=== PATIENT | female | born 1950 | race Caucasian/White ===

== ENCOUNTER 2018-02-01 18:56 | Emergency (ER) | payer MEDICARE, OTHER ==
--- NOTE | 2018-02-01 20:09 | CT ---
CT HEAD NONCONTRAST: Clinical history: Fall with head injury and pain. FINDINGS: No evidence of intracranial hemorrhage, mass effect, midline shift or ventriculomegaly. Chronic appea ring dehiscense is seen at the mediolateral orbital wall. IMPRESSION: No acute intracranial hemorrhage or mass effect. POS: [facility]
--- NOTE | 2018-02-01 20:15 | RAD ---
LEFT SHOULDER THREE VIEWS: History: Trauma. Comparison: None. FINDINGS: No acute fracture. No malalignment. The visualized ribs are unremarkable. Mild degenerative disease at the acromioclavicular joint. IMPRESSION: No acute fracture or malalignment. POS: [facility]
--- NOTE | 2018-02-01 20:55 | CT ---
CT CHEST WITHOUT CONTRAST: History: Fall. Left sided pain. Comparison: None. FINDINGS: There is a large hiatal hernia. Prior gastric bypass surgery. The hernia contains the gastric pouch a nd a bhargavi limb. The lungs are clear. No pneumothorax or effusion. No mediastinal adenopathy. No pericardial effusion. There is a fat containing ventral hernia incomple tely evaluated in the upper abdomen. Right upper quadrant surgical clips. Prior cholecystectomy. No t horacic spine compression fracture. Clavicles are intact as well as the visualized portions of the sh oulders. No displaced rib fracture. No rib buckle fracture is appreciated. IMPRESSION: 1. No acute intrathoracic abnormality. 2. Prior gastric bypass surgery with sliding hernia containing the gastric pouch and bhargavi limb. 3. Ventral hernia containing fat and incompletely evaluated of the upper abdomen. POS: [facility]
== END 2018-02-01 20:59 | disposition home or self-care (01) ==
LOC: SCSER 18:56
DX: R07.89 Other chest pain (principal); F41.9 Anxiety disorder, unspecified; F32.9 Major depressive disorder, single episode, unspecified; W01.0XXA Fall on same level from slipping, tripping and stumbling without subsequent striking against object, initial encounter; Y92.481 Parking lot as the place of occurrence of the external cause
CPT/HCPCS: 70450; 71250

== ENCOUNTER 2023-08-13 10:28 | Outpatient (CLI) | payer MEDICARE, OTHER ==
[2023-08-13 12:19] LABS: #Eosinphils 0.2 10x3/uL (0.0-0.5); #Monocytes 0.5 10x3/uL (0.0-1.1); #Neutrophils 3.2 10x3/uL (1.5-8.4); %Basophils 0.8 % (0.0-2.0); %Lymphocytes 26.4 % (18.0-47.0); %Monocytes 10.2 % (0.0-10.0); %Neutrophils 59.2 % (40.0-75.0); Hematocrit 36.2 % (34.9-44.5); Hemoglobin 11.4 g/dL (12.0-15.5); Mean Corpuscular HGB CONC 31.5 g/dL (32.0-36.0); Mean Corpuscular Hemoglobin 28.9 pg (27.0-33.0); Mean Corpuscular Volume 91.9 fl (81.6-98.3); Mean Platelet Volume 10.8 fl (7.4-10.4); Platelet Count 163 10x3/uL (150-450); RBC Distribution Width 12.6 % (11.5-14.5); Red Blood Cell (RBC) Count 3.94 10x6/uL (3.90-5.03); White Blood Cell (WBC) Count 5.3 10x3/uL (3.5-10.5)
[2023-08-13 12:53] LABS: Prothrombin Time 10.5 sec (9.5-12.1)
[2023-08-13 13:00] LABS: Anion Gap 12 mmol/L (10-20); BUN (Urea Nitrogen) 13 mg/dL (9.8-20.1); Calc. Creatinine Clearance 0 mL/min (70-130); Calcium 8.7 mg/dL (7.8-10.44); Carbon Dioxide 28 mmol/L (23-31); Chloride 104 mmol/L (98-107); Estimated GFR 74; Glucose 65 mg/dL (83-110); Potassium 4.1 mmol/L (3.5-5.1); Sodium 140 mmol/L (136-145)
== END 2023-08-13 10:29 | disposition home or self-care (01) ==
LOC: LABBT 10:28
PROVIDERS: ATTEND Orthopaedic Surgery
DX: Z01.818 Encounter for other preprocedural examination (principal); M87.9 Osteonecrosis, unspecified
CPT/HCPCS: 80048; 85025; 85610; 87081; 93005; 93010

== ENCOUNTER 2023-08-18 06:29 | Observation (INO) | payer MEDICARE, OTHER ==
[2023-08-13 11:24] VITALS: BMI 30.7
[2023-08-18] MEDS ORDERED: Vancomycin (BATCH) 1.5 GRAM/300 ML BAG ONE (07:33)
[2023-08-18] MEDS ORDERED: Sodium Chloride 0.9% 100 ML ONE ×2 (07:33→09:00)
[2023-08-18] MEDS ORDERED: Tranexamic Acid 1,000 MG/10 ML VIAL ONE (07:33)
[2023-08-18] MEDS ORDERED: Midazolam HCl 2 mg/2 ml Vial ONE (08:03)
[2023-08-18] MEDS ORDERED: fentaNYL 50 mcg/mL 1 mL Vial ONE ×4 (08:03→15:11)
[2023-08-18] MEDS ORDERED: Bupivacaine PF 0.5% 30 ML VIAL ONE ×2 (08:03→08:49)
[2023-08-18] MEDS ORDERED: fentaNYL 50 mcg/mL 1 mL Vial SLOW IVP PRN (08:52)
[2023-08-18] MEDS ORDERED: Propofol 500 MG/50 ML VIAL ONE (08:57)
[2023-08-18] MEDS ORDERED: traMADol HCl 50 MG TAB PO PRN ×2 (09:00)
[2023-08-18] MEDS ORDERED: Zolpidem Tartrate 5 MG TAB PO PRN ×2 (09:00→09:17)
[2023-08-18] MEDS ORDERED: Ropivacaine 0.2% 550 ML 550 ML NERVE BLCK SCH (09:00)
[2023-08-18] MEDS ORDERED: Ondansetron PF 4 MG/2 ML Vial IVP PRN ×2 (09:00→09:17)
[2023-08-18] MEDS ORDERED: Promethazine HCl 25 MG/ML VIAL IM PRN ×3 (09:00→10:07)
[2023-08-18] MEDS ORDERED: HYDROcodone/Acetaminophen 10/325 mg Tablet PO PRN (09:00)
[2023-08-18] MEDS ORDERED: CEFAZOLIN 2 GM VIAL ONE (09:00)
[2023-08-18] MEDS ORDERED: Acetaminophen 325 MG TAB PO PRN (09:17)
[2023-08-18] MEDS ORDERED: diphenhydrAMINE 25 MG CAP PO PRN (09:17)
[2023-08-18] MEDS ORDERED: Bupivacaine HCl 0.5%/Epinephrine 1:200,000/PF 30 ml Vial ONE (09:40)
[2023-08-18] MEDS ORDERED: PHENYLEPHRINE-NS 100 MCG/ML 10 ML SYRINGE ONE (09:40)
[2023-08-18] MEDS ORDERED: PROPOFOL 200 MG/20 ML VIAL ONE (09:40)
[2023-08-18] MEDS ORDERED: HYDROmorphone 2 MG/ML VIAL SLOW IVP PRN (10:07)
[2023-08-18] MEDS ORDERED: Meperidine HCl/PF 25 MG/ML VIAL SLOW IVP PRN (10:07)
[2023-08-18] MEDS ORDERED: PROPOFOL 20 ML ONE (10:24)
[2023-08-18] MEDS ORDERED: Ondansetron HCl/PF 4 MG/2 ML Vial IVP PRN (13:57)
[2023-08-18] MEDS: Ketorolac Tromethamine 30 MG/ML VIAL IVP SCH ×3 (16:20→22:51)
[2023-08-18] MEDS: Sodium Chloride 0.9% 1,000 ML IV SCH ×2 (16:38→19:54)
[2023-08-18] MEDS: HYDROcodone/Acetaminophen 10/325 mg Tablet PO PRN ×2 (16:38→22:58)
[2023-08-18] MEDS: CEFAZOLIN 2 GM in Sodium Chloride 0.9% 100 ML IVPB SCH ×2 (16:38→22:52)
[2023-08-18] MEDS: Ferrous Gluconate 324 MG TAB PO SCH (21:11)
[2023-08-18] MEDS: Senokot S 8.6-50 MG TAB PO SCH (21:11)
[2023-08-18] MEDS: Aspirin 81 mg Enteric Coated Tablet PO SCH (21:11)
[2023-08-19] MEDS: Sodium Chloride 0.9% 1,000 ML IV SCH (03:55)
[2023-08-19] MEDS: HYDROcodone/Acetaminophen 10/325 mg Tablet PO PRN ×2 (06:14→09:39)
[2023-08-19] MEDS: Ketorolac Tromethamine 30 MG/ML VIAL IVP SCH (06:15)
[2023-08-19 06:47] LABS: Hemoglobin 9.2 g/dL (12.0-16.0)
[2023-08-19 06:48] LABS: Hematocrit 28.6 % (36.0-47.0); Mean Corpuscular HGB CONC 32.2 g/dL (32.0-36.0); Mean Corpuscular Hemoglobin 30.1 pg (27.0-31.0); Mean Corpuscular Volume 93.5 fl (78.0-98.0); Mean Platelet Volume 10.6 fL (7.4-10.4); Platelet Count 111 10x3/uL (130-400); RBC Distribution Width 12.8 % (11.5-14.5); Red Blood Cell (RBC) Count 3.06 mill/uL (4.20-5.40); White Blood Cell (WBC) Count 6.4 10x3/uL (4.8-10.8)
[2023-08-19] MEDS ORDERED: Non-Formulary Item 1 EACH (Losartan Potassium [Losartan Potassium] 50 MG Tablet) PO SCH (09:00)
[2023-08-19] MEDS ORDERED: Sertraline 100 MG TAB PO SCH (09:00)
[2023-08-19] MEDS ORDERED: Multivitamin W/ Minerals 1 TAB PO SCH (09:00)
[2023-08-19] MEDS ORDERED: Losartan 25 MG TAB PO SCH (09:00)
[2023-08-19] MEDS: Aspirin 81 mg Enteric Coated Tablet PO SCH (09:35)
[2023-08-19] MEDS: Ferrous Gluconate 324 MG TAB PO SCH (09:36)
[2023-08-19] MEDS: Senokot S 8.6-50 MG TAB PO SCH (09:39)
[2023-08-19 11:56] VITALS: BP 112/72; TEMP 98.9
== END 2023-08-19 12:23 | disposition home or self-care (01) ==
LOC: SDC 06:29 → SURG A 09:17
PROVIDERS: ADMIT Orthopaedic Surgery; ATTEND Orthopaedic Surgery
PROC: 0SRD0JZ Replacement of Left Knee Joint with Synthetic Substitute, Open Approach (ICD-10-PCS; principal; 2023-08-18)
DX: M87.852 Other osteonecrosis, left femur (principal); Z90.710 Acquired absence of both cervix and uterus; Z90.49 Acquired absence of other specified parts of digestive tract; Z88.1 Allergy status to other antibiotic agents; Z98.84 Bariatric surgery status
CPT/HCPCS: 27447; 73560; 85027; 97110; 97116 ×2; 97530; A4306; C1776; J3010; J3370; 36415; J1885; J2250; J2405; J2704; J2795; J3490; J7050; S0020